=== PATIENT | male | born 1995 | race Caucasian/White ===

== ENCOUNTER 2022-03-04 18:16 | Emergency (ER) | payer OTHER ==
[~2022-03-04] VITALS: Ht 175.3 cm; Wt 90.0 kg
[2022-03-04 19:17] VITALS: BP 152/90
--- NOTE | 2022-03-04 19:37 | PHYS DOC ---
Past History Additional Past Medical Histor: alcoholic Past Surgical History: Other Additional Past Surgical Histo: tm tubes Adult General Chief Complaint Chief Complaint: PSYCH EVALUATION HPI HPI Patient is a 27-year-old male, alcoholic who presents to the emergency department for psych evaluation and wanting help with alcohol detox. Denies any recent traumas, travels, illness, fevers, chest pain, shortness of breath, abdominal pain with nausea, vomiting, diarrhea. Denies num bness/weakness/tingling or tremor. Denies any suicidal ideation, homicidal ideation or hallucinations. States he would just like some help getting off the alcohol. Review of Systems Review of Systems Review of systems otherwise unremarkable except noted in HPI Allergies Allergies Allergies Coded Allergies Type Severity Reaction Last Updated Verified No Known Drug Allergies 03/04/22 No Physical Exam Physical Exam Constitutional: Well developed, well nourished, no acute distress, non-toxic appearance. [] HENT: Normocephalic, atraumatic, bilateral external ears normal, oropharynx moist, no oral exudates, nose normal. [] Eyes: conjunctiva normal, no discharge. [] Neck: Normal range of motion, no tenderness, supple, no stridor. [] Cardiovascular:Heart rate regular rhythm, no murmur [] Lungs & Thorax: Bilateral breath sounds clear to auscultation [] Abdomen: Bowel sounds normal, soft, no tenderness, no masses, no pulsatile masses. [] Skin: Warm, dry, no erythema, no rash. [] Back: No tenderness, no CVA tenderness. [] Extremities: No tenderness, no cyanosis, no clubbing, ROM intact, no edema. [] Neurologic: Alert and oriented X 3, normal motor function, normal sensory function, no focal deficits noted. [] Psychologic: Affect normal, judgement normal, mood normal, no SI, no HI, no hallucinations, no alcohol or drug use. [] Current Patient Data Vital Signs Vital Signs Date Time Temp Pulse Resp B/P (MAP) Pulse Ox O2 Delivery O2 Flow Rate FiO2 03/04/22 19:17 99.0 89 20 152/90 (110) 96 Room Air EKG EKG [] Radiology/Procedures Radiology/Procedures [] Heart Score C/O Chest Pain: No Risk Factors: Risk Factors: DM, Current or recent (<one month) smoker, HTN, HLP, family history of CAD, obesity. Risk Scores: Risk Factors: DM, Current or recent (<one month) smoker, HTN, HLP, family history of CAD, obesity. Course & Med Decision Making Course & Med Decision Making Patient is a 27-year-old male who presents for psych eval and wanting alcohol detox Vital signs notable for hypertension. Physical exam noted above. Psychiatric assessment team liaison met with patient and get resources for detox. Denied any other need for medical treatment and patient was very happy meeting with the [facility] team. Laboratory analysis not concerning. Discussed all findings with patient. Given safety plan and community resource packet as well as instructions on facilities for detox. Advised to contact these facilities and his primary care physician first thing in the morning to update on ED visit. Patient very grateful, verbalized understanding agreed with plan of discharge, and following plan set forth by PAT balaji Cordova Disclaimer Art Disclaimer This electronic medical record was generated, in whole or in part, using a voice recognition dictation system. Departure Departure: Impression: Primary Impression: Alcohol abuse Disposition: HOME / SELF CARE / HOMELESS Condition: STABLE Referrals: PCP,RAMIRO (PCP) JOHANNA JEFFRIES MD Patient Instructions: Alcohol Problems Additional Instructions: Thank you for coming into the emergency department tonight and allowing us to take care of you. Please read the attached information carefully to go over things we discussed. Please follow-up the safety plan set forth by your psychiatric liaison and call the facilities that she gave you. She also gave her a business card to call with any questions. You are given a community resource packet as well to go through as we discussed. Please start calling around first thing in the morning to these facilities your primary care physician in the [facility]. Please come back with new or concerning symptoms as we discussed CHANNING JOHNSTON MD March 04, 2022 19:37
[2022-03-04 20:17] LABS: BASO % 0 % (0-3); EOS # 0.1 x10^3/uL (0.0-0.7); EOS % 1 % (0-3); HEMATOCRIT 47.8 % (39.0-53.0); HEMOGLOBIN 16.3 g/dL (13.0-17.5); LYMPH # 2.4 x10^3/uL (1.0-4.8); LYMPH % 25 % (24-48); MEAN CORPUSCULAR HEMOGLOBIN 32 pg (25-35); MEAN CORPUSCULAR HGB CONC 34 g/dL (31-37); MEAN CORPUSCULAR VOLUME 94 fL (79-100); MONO # 0.6 x10^3/uL (0.0-1.1); MONO % 6 % (0-9); NEUT # 6.5 x10^3uL (1.8-7.7); NEUT % 67 % (31-73); PLATELET COUNT 346 x10^3/uL (140-400); RED CELL DISTRIBUTION WIDTH 13.9 % (11.5-14.5); WHITE BLOOD COUNT 9.6 x10^3/uL (4.0-11.0)
[2022-03-04 20:24] LABS: CALCIUM 8.9 mg/dL (8.5-10.1); CREATININE 1.1 mg/dL (0.7-1.3); GFR 79.1; POTASSIUM 3.8 mmol/L (3.5-5.1)
[2022-03-04 20:28] LABS: ACETAMIN < 2.0 mcg/mL (10-30); ETHANOL 259 mg/dL (0-10); SALIC < 2.8 mg/dL (2.8-20.0)
[2022-03-04 20:35] LABS: ALBUMIN 4.1 g/dL (3.4-5.0); ALBUMIN/GLOBULIN RATIO 1.1 (1.0-1.7); TOTAL BILIRUBIN 0.5 mg/dL (0.2-1.0)
== END 2022-03-04 21:50 | disposition home or self-care (01) ==
LOC: ER 18:16
DX: F10.10 Alcohol abuse, uncomplicated (principal); Z20.822 Contact with and (suspected) exposure to COVID-19; Y90.8 Blood alcohol level of 240 mg/100 ml or more
CPT/HCPCS: 80053; 80329; 85025; 87426; 99283; C9803; G0480; U0003